=== PATIENT | female | born 1960 | race Caucasian/White ===

== ENCOUNTER 2016-07-30 07:59 | Emergency (ER) | payer SELFPAY ==
[~2016-07-30 07:59] MED LIST: HYDR25TA9 PO; LEVO100T5 PO
[2016-07-30] MEDS ORDERED: HYDROXYZINE PAMOATE 25 MG CAPSULE PO ONE (08:15)
--- NOTE | 2016-07-30 08:18 | PHYS DOC ---
Past Medical History Past Medical History: Anxiety, Depression, Hypertension, Hypothyroid Past Surgical History: , Other Additional Past Surgical Histo: left shoulder, R wrist Alcohol Use: None Drug Use: None Adult General Chief Complaint Chief Complaint: OTHER COMPLAINTS [facility] HPI Patient is a 55 year old female presents emergency department by department by way of EMS. She states that she was watching TV when she saw a critter crawl inside her body. Patient states that her son's friend who is at the house catches critters inside of people. Patient states he did try to catch this critter but was unsuccessful. Patient states she has a history of high blood pressure although has not taken her lisinopril for quite some time. Patient also states she has a history of depression she states that she takes trazodone although she also takes another medication and cannot remember the name of it. Patient denies being homicidal or suicidal. Patient states that the critter is in the left upper thigh. Patient denies any numbness or tingling down into the lower extremities. She denies that the critter is moving at this time. Patient denies any use of recreational drugs, alcohol. She does have a history of smoking. Review of Systems Review of Systems Constitutional: Denies fever or chills [] Eyes: Denies change in visual acuity, redness, or eye pain [] HENT: Denies nasal congestion or sore throat [] Respiratory: Denies cough or shortness of breath [] Cardiovascular: No additional information not addressed in HPI [] GI: Denies abdominal pain, nausea, vomiting, bloody stools or diarrhea [] : Denies dysuria or hematuria [] Musculoskeletal: Denies back pain or joint pain [] Integument: Denies rash or skin lesions. C/o critters crawling in her left upper thigh Neurologic: Denies headache, focal weakness or sensory changes [] Current Medications Current Medications Current Medications Medications (Trade) Dose Ordered Sig/Dilia Start Time Stop Time Status Last Admin Dose Admin Ceftriaxone Sodium (Rocephin Im) 1 gm 1X ONCE 07/30/16 09:45 07/30/16 09:46 DC Hydroxyzine Pamoate (Vistaril) 25 mg 1X ONCE 07/30/16 08:15 07/30/16 08:16 DC 07/30/16 09:09 25 MG Allergies Allergies Allergies Coded Allergies Type Severity Reaction Last Updated Verified No Known Drug Allergies 01/24/15 No Physical Exam Physical Exam Constitutional: Well developed, well nourished, no acute distress, non-toxic appearance. [] HENT: Normocephalic, atraumatic, bilateral external ears normal, oropharynx moist, no oral exudates, nose normal. [] Eyes: PERRLA, EOMI, conjunctiva normal, no discharge. [] Neck: Normal range of motion, no tenderness, supple, no stridor. [] Cardiovascular:Heart rate regular rhythm, no murmur [] Lungs & Thorax: Bilateral breath sounds clear to auscultation [] Abdomen: Bowel sounds normal, soft, no tenderness, no masses, no pulsatile masses. [] Skin: Warm, dry, no erythema, no rash. Area in the left groin area appears to be dark in color patient states that it does itch. No drainage or discharge noted Back: No tenderness Extremities: No tenderness, no cyanosis, no clubbing, ROM intact, no edema. [] Neurologic: Alert and oriented X 3, normal motor function, normal sensory function, no focal deficits noted. [] Psychologic: Affect normal, judgement normal, mood normal. [] Current Patient Data Vital Signs Vital Signs Date Time Temp Pulse Resp B/P Pulse Ox O2 Delivery O2 Flow Rate FiO2 07/30/16 08:00 97.4 106 22 178/96 94 Room Air 97.4 Lab Values Laboratory Tests Test 07/30/16 08:20 White Blood Count 16.6x10^3/uL (4.0-11.0) H Red Blood Count 5.66x10^6/uL (3.50-5.40) H Hemoglobin 16.6g/dL (12.0-15.5) H Hematocrit 51.1% (36.0-47.0) H Mean Corpuscular Volume 90fL (79-100) Mean Corpuscular Hemoglobin 29pg (25-35) Mean Corpuscular Hemoglobin Concent 33g/dL (31-37) Red Cell Distribution Width 14.0% (11.5-14.5) Platelet Count 290x10^3/uL (140-400) Neutrophils (%) (Auto) 77% (31-73) H Lymphocytes (%) (Auto) 17% (24-48) L Monocytes (%) (Auto) 5% (0-9) Eosinophils (%) (Auto) 1% (0-3) Basophils (%) (Auto) 1% (0-3) Neutrophils # (Auto) 12.7x10^3uL (1.8-7.7) H Lymphocytes # (Auto) 2.7x10^3/uL (1.0-4.8) Monocytes # (Auto) 0.8x10^3/uL (0.0-1.1) Eosinophils # (Auto) 0.1x10^3/uL (0.0-0.7) Basophils # (Auto) 0.1x10^3/uL (0.0-0.2) Platelet Estimate Pending Urine Collection Type Unknown Urine Color [place] Urine Clarity Cloudy Urine pH 6.0 Urine Specific [place] 1.025 Urine Protein 100mg/dL (NEG-TRACE) Urine Glucose (UA) Negativemg/dL (NEG) Urine Ketones (Stick) Tracemg/dL (NEG) Urine Blood Large (NEG) Urine Nitrite Negative (NEG) Urine Bilirubin Moderate (NEG) Urine Urobilinogen Dipstick 1.0mg/dL (0.2 mg/dL) Urine Leukocyte Esterase Small (NEG) Urine RBC 3-5/HPF (0-2) Urine WBC 1-4/HPF (0-4) Urine Squamous Epithelial Cells Many/LPF Urine Bacteria Moderate/HPF (0-FEW) Urine Mucus Marked/LPF Sodium Level 147mmol/L (136-145) H Potassium Level 3.7mmol/L (3.5-5.1) Chloride Level 106mmol/L (98-107) Carbon Dioxide Level 25mmol/L (21-32) Anion Gap 16 (6-14) H Blood Urea Nitrogen 10mg/dL (7-20) Creatinine 1.0mg/dL (0.6-1.0) Estimated GFR (Cockcroft-Gault) 58.0 BUN/Creatinine Ratio 10 (6-20) Glucose Level 131mg/dL (70-99) H Calcium Level 9.9mg/dL (8.5-10.1) Total Bilirubin 0.5mg/dL (0.2-1.0) Aspartate Amino Transferase (AST) 18U/L (15-37) Alanine Aminotransferase (ALT) 27U/L (14-59) Alkaline Phosphatase 75U/L (46-116) Total Protein 8.0g/dL (6.4-8.2) Albumin 4.0g/dL (3.4-5.0) Albumin/Globulin Ratio 1.0 (1.0-1.7) Laboratory Tests 07/30/16 08:20 Laboratory Tests 07/30/16 08:20 EKG EKG [] Radiology/Procedures Radiology/Procedures [] Course & Med Decision Making Course & Med Decision Making Pertinent Labs and Imaging studies reviewed. (See chart for details) CBC slightly elevated although UA positive for UTI. Urine drug screen negative. Patient was provided with vistaril and rocephin here in the emergency department. Patient was provided with lab results. She states the critters are not bothering her to much although they are still in her. She states she wants the critters removed. Patient will be discharged home in stable condition with recommendations to followup with her mental health provider. She will be provided with bactrim DS for the UTI she will also be provided with a prescription for her yeast infection in the left groin area. She was provided with signs and symptoms to return to the emergency department. Patient agrees with discharge instructions, treatment regimen and followup recommendations. [] Dragon Disclaimer Dragon Disclaimer This electronic medical record was generated, in whole or in part, using a voice recognition dictation system. Departure Departure Impression: Primary Impression: UTI (urinary tract infection) Disposition: 01 HOME, SELF-CARE Condition: STABLE Referrals: TAMMIE RUIZ MD (PCP) Patient Instructions: Urinary Tract Infection, [id number] Additional Instructions: Activity as tolerated Medication as prescribed Drink plenty of fluids such as water and cranberry juice Avoid cranberry juice cocktail, carbonated beverages, citrus fruits and alcohol as these are considered irritants to the bladder Keep the left groin area clean and dry Clean the left groin area with soap and water and apply medication as prescribed Followup with your mental health provider in 1-2 days Return to emergency department as needed for signs and symptoms that become worse. Scripts Nystatin 15 Gm Cream..g.1 Sima TP BID #30 GM Prov:KAITLYNN CORDERO [employer] MANAGER 07/30/16 Hydroxyzine Pamoate (Vistaril)25 Mg Capsule1 Cap PO TID PRN ANXIETY / AGITATION #20 CAP Ref 1 Prov:KAITLYNN CORDERO NP 07/30/16 Sulfamethoxazole/Trimethoprim (Bactrim Ds Tablet)1 Each Tablet1 Tab PO BID #14 TAB Prov:KAITLYNN CORDERO NP 07/30/16 KAITLYNN CORDERO NP Jul 30, 2016 08:18
[2016-07-30 08:48] LABS: BASO # 0.1 x10^3/uL (0.0-0.2); BASO % 1 % (0-3); EOS % 1 % (0-3); HEMATOCRIT 51.1 % (36.0-47.0); HEMOGLOBIN 16.6 g/dL (12.0-15.5); LYMPH # 2.7 x10^3/uL (1.0-4.8); LYMPH % 17 % (24-48); MEAN CORPUSCULAR HEMOGLOBIN 29 pg (25-35); MEAN CORPUSCULAR HGB CONC 33 g/dL (31-37); MEAN CORPUSCULAR VOLUME 90 fL (79-100); MONO % 5 % (0-9); NEUT % 77 % (31-73); PLATELET COUNT 290 x10^3/uL (140-400); RED BLOOD COUNT 5.66 x10^6/uL (3.50-5.40); WHITE BLOOD COUNT 16.6 x10^3/uL (4.0-11.0)
[2016-07-30 08:50] LABS: BILIRUBIN,URINE MODERATE (NEG); GLUCOSE,URINE NEGATIVE (NEG); NITRITE,URINE NEGATIVE (NEG); PROTEIN,URINE 100 mg/dL (NEG-TRACE)
[2016-07-30 08:55] LABS: CALCIUM 9.9 mg/dL (8.5-10.1); POTASSIUM 3.7 mmol/L (3.5-5.1)
[2016-07-30 09:00] LABS: TOTAL BILIRUBIN 0.5 mg/dL (0.2-1.0)
[2016-07-30 09:13] LABS: BACTERIA,URINE MODERATE /HPF (0-FEW); SQUAMOUS EPITHELIAL CELL,UR MANY /LPF
[2016-07-30] MEDS ORDERED: CEFTRIAXONE IM 1 GM VIAL. IM ONE (09:45)
[2016-07-30 09:54] LABS: BARBITURATES NEG (NEG); BENZODIAZEPINES NEG (NEG); CANNABINOIDS NEG (NEG); COCAINE NEG (NEG); METHADONE NEG (NEG); OPIATES NEG (NEG); PHENCYCLIDINE NEG (NEG)
[2016-07-30 09:55] LABS: ETHANOL, URINE NEG (NEG)
[2016-07-30] MEDS ORDERED: HYDR25CA PO (10:00)
[2016-07-30] MEDS ORDERED: NYST15CR TP (10:00)
[2016-07-30] MEDS ORDERED: SULF1TAB24 PO (10:00)
[2016-07-30 10:29] VITALS: BP 151/98
[2016-07-30 11:10] LABS: % EOS 2 % (0-5); PLT ESTIMATE ADEQUATE (ADEQUATE)
== END 2016-07-30 10:38 | disposition home or self-care (01) ==
LOC: ER 07:59
DX: N39.0 Urinary tract infection, site not specified (principal); I10 Essential (primary) hypertension; E03.9 Hypothyroidism, unspecified; Z98.890 Other specified postprocedural states
CPT/HCPCS: 36415; 80053; 81001; 85007; 85027; 87086; 96372; 99284; G0481; J0696; Q0177

== ENCOUNTER 2017-10-11 16:26 | Emergency (ER) | payer SELFPAY ==
[2017-10-11 16:57] LABS: BILIRUBIN,URINE NEGATIVE (NEG); CLARITY,URINE CLEAR; COLOR,URINE YELLOW; GLUCOSE,URINE NEGATIVE (NEG); NITRITE,URINE NEGATIVE (NEG); PROTEIN,URINE 100 mg/dL (NEG-TRACE)
[2017-10-11 17:10] LABS: BACTERIA,URINE MANY /HPF (0-FEW); SQUAMOUS EPITHELIAL CELL,UR MOD /LPF; WBC,URINE OCC /HPF (0-4)
[2017-10-11] MEDS: ONDANSETRON PF 4 MG/2 ML VIAL. IV (17:10)
[2017-10-11] MEDS: fentaNYL PF VIAL 100 MCG/2 ML VIAL IV (17:12)
[2017-10-11] MEDS: LABETALOL 20 MG/4 ML DISP.SYRIN. IVP ×2 (17:14→18:51)
[2017-10-11 17:20] LABS: BASO # 0.1 x10^3/uL (0.0-0.2); BASO % 1 % (0-3); EOS % 0 % (0-3); HEMATOCRIT 46.7 % (36.0-47.0); HEMOGLOBIN 15.6 g/dL (12.0-15.5); LYMPH # 1.3 x10^3/uL (1.0-4.8); LYMPH % 11 % (24-48); MEAN CORPUSCULAR HEMOGLOBIN 30 pg (25-35); MEAN CORPUSCULAR HGB CONC 33 g/dL (31-37); MEAN CORPUSCULAR VOLUME 91 fL (79-100); MONO # 0.3 x10^3/uL (0.0-1.1); MONO % 2 % (0-9); NEUT # 10.2 x10^3uL (1.8-7.7); NEUT % 85 % (31-73); PLATELET COUNT 272 x10^3/uL (140-400); RED BLOOD COUNT 5.14 x10^6/uL (3.50-5.40); RED CELL DISTRIBUTION WIDTH 14.4 % (11.5-14.5)
[2017-10-11 17:29] LABS: ADD MAN DIFF? YES
[2017-10-11 17:32] LABS: ANION GAP 11 (6-14); BLOOD UREA NITROGEN 10 mg/dL (7-20); BUN/CREATININE RATIO 13 (6-20); CALCIUM 8.8 mg/dL (8.5-10.1); CARBON DIOXIDE 28 mmol/L (21-32); CHLORIDE 104 mmol/L (98-107); CREATININE 0.8 mg/dL (0.6-1.0); GFR 74.5; GLUCOSE 122 mg/dL (70-99); POTASSIUM 3.6 mmol/L (3.5-5.1); SODIUM 143 mmol/L (136-145)
[2017-10-11 17:38] LABS: ALBUMIN 3.8 g/dL (3.4-5.0); ALK PHOS 77 U/L (46-116); ALT (SGPT) 23 U/L (14-59); AST (SGOT) 20 U/L (15-37); LIPASE 157 U/L (73-393); TOTAL BILIRUBIN 0.5 mg/dL (0.2-1.0); TOTAL PROTEIN 7.6 g/dL (6.4-8.2)
[2017-10-11 17:44] LABS: TROPONINI < 0.017 ng/mL (0.000-0.055)
[2017-10-11 17:54] LABS: % BANDS 1 % (0-9); % LYMPHS 13 % (24-48); % MONOS 4 % (0-10); % SEGS 82 % (35-66)
[2017-10-11 17:55] LABS: PLT ESTIMATE ADEQUATE (ADEQUATE)
[2017-10-11 17:56] LABS: TOXIC GRANULATION SLIGHT
[2017-10-11] MEDS: cloNIDine HCL 0.1 MG TABLET PO (19:54)
== END 2017-10-11 20:27 | disposition home or self-care (01) ==
LOC: ER 16:26
DX: R10.32 Left lower quadrant pain (principal); I16.0 Hypertensive urgency; E03.9 Hypothyroidism, unspecified; I10 Essential (primary) hypertension; F41.9 Anxiety disorder, unspecified; F32.9 Major depressive disorder, single episode, unspecified
CPT/HCPCS: 36415; 71045; 80053; 81001; 83690; 84484; 85007; 85025; 87086; 93005; 96374; 96375; 96376; 99285-25; J2405; J3010; J3490